=== PATIENT | female | born 1980 | race Caucasian/White ===

== ENCOUNTER 2024-11-18 13:05 | Outpatient (CLI) | payer OTHER, SELFPAY ==
--- NOTE | 2024-11-18 13:30 | DI.MRI_ITS ---
Exam(s) MR LOWER JOINT RT WO EXAM: MR LOWER JOINT RT WO CLINICAL HISTORY: ? ACL TEAR S89.91XA INJURY RT LEG. TECHNIQUE: Multiplanar multisequence MRI was performed. COMPARISON: The exam is interpreted without benefit of comparison plain films. FINDINGS: BONES: There is a small focus of edema in the medial femoral condyle deep to a cartilage defect. There is mild edema in the posterior aspect of the lateral tibial plateau which could indicate mild contusion. JOINTS: A moderate-sized joint effusion is present. Articular cartilage: Patellofemoral joint: Articular cartilage is unremarkable. Medial femoral tibial joint: Focal linear defect at the medial femoral condylar cartilage that extends down to bone. There is a small focus edema in the adjacent bone. Lateral femoral tibial joint: Articular cartilage is unremarkable. LIGAMENTS/TENDONS: Anterior Cruciate: The fibers are indistinct near the femoral attachment. This could indicate a severe partial to full-thickness tear. Posterior Cruciate: Unremarkable. Medial Collateral:Some edema around the medial collateral ligament but no visible tear. Lateral Collateral ligament complex: Unremarkable. Extensor mechanism: Unremarkable. Medial retinaculum: Unremarkable. Lateral retinaculum: Unremarkable. Popliteus: Unremarkable. MENISCI: The medial meniscus shows a small tear in the posterior horn at the inferior articular surface. This is near the level of the cartilage defect of the medial femoral condyle. The lateral meniscus is unremarkable. MUSCLES: Unremarkable. SOFT TISSUES: Mild anterior edema in the subcutaneous fat. IMPRESSION: Focal linear cartilage defect of the medial femoral condyle and adjacent bony edema. Small tear of the posterior horn of the medial meniscus in the region of the cartilage defect. The fibers of the anterior cruciate ligament are indistinct at the femoral attachment which could indicate severe partial versus full-thickness tear. DATA REPOSITORY:
== END 2024-11-18 13:25 ==
LOC: DI 12-03 13:05
PROVIDERS: Visit Provider Student in an Organized Health Care Education/Training Program
DX: S89.91XA Unspecified injury of right lower leg, initial encounter (principal); M23.321 Other meniscus derangements, posterior horn of medial meniscus, right knee; X58.XXXA Exposure to other specified factors, initial encounter
CPT/HCPCS: 73721

== ENCOUNTER 2024-12-18 08:44 | Day surgery (SDC) | payer OTHER, SELFPAY ==
[2024-12-18] VITALS (32 sets, daily range): BP systolic 123–160; BP diastolic 82–137; PULSE 62–94; RESP 8–24; TEMP 36.5–37.1; O2SAT 82–100; BMI 28.4
--- NOTE | 2024-12-18 06:56 | ROE_ITS ---
Operative Note Operative Note PRE-OP DIAGNOSIS: Right knee: 1. Proximal ACL rupture 2. Medial meniscus tear 3. Medial femoral condyle cartilage tear PROCEDURE: Right knee: 1. ACL REPAIR, CPT #91240 2. Partial medial and lateral meniscectomy, CPT #52530 3. Intercondylar and medial femoral condyle microfracture, CPT #86892 SURGEON: Al Denney ROLLER INSPECTOR AND MENDER: Tasha Curry ANESTHESIA TYPE: Local By Surgeon, General LMA/ETT and Primary Nerve Block Refer to Anesthesia Record ESTIMATED BLOOD LOSS: 10 TOURNIQUET TIME: 0 COMPLICATIONS: None Patient was transported to: PACU Patient's condition: stable Implants: Arthrex 4.75 mm bio composite SwiveLock with 3 x 1.3 mm suture tape FiberLink's for ACL repair Indications: Please see complete medical record for details. Findings: Exam under anesthesia: Full range of motion, grossly positive Neelam, equivocal positive pivot glide, stable varus and valgus Arthroscopic findings: Near?complete proximal ACL avulsion with otherwise healthy intact ACL ligament tissue throughout. Moderate global capsulitis and synovitis. Relatively small high grade medial femoral condyle 5 x 10 cartilage lesion. Possible small hidden far posterior horn medial meniscus incomplete inferior leaflet tear with stable margins. Redundant lateral meniscus white zone fraying. Intact PCL. Procedure Description: In the operating room, general anesthesia was induced. The patient was positioned supine on the operating room table. All bony prominences were well- padded. Preoperative antibiotics were administered. The knee was prepped and draped in the usual sterile fashion. The correct patient, procedure, and side of the procedure were all verified prior to incision. Exam under anesthesia was performed. Local anesthetic containing epinephrine was infiltrated about the planned anteromedial, anterolateral, and possible late ral distal femoral, and pretibial surgery sites. The standard anteromedial anterolateral portals were established and a complete diagnostic arthroscopy was performed with relevant findings detailed above. A passport cannula was inserted in both the anteromedial and anterolateral portals. Mechanical shaver was used to remove the medial gutter plica and redundant inflamed synovium from patellofemoral and anterior intercondylar areas. The ACL was carefully examined and inspected. Anterior drawer testing over the side of table confirmed proximal avulsion with otherwise excellent ACL length and tissue throughout its entire course. The femoral origin was lightly decorticated with the ACL retracted to avoid tissue injury to optimize healing and a small notchplasty done for visualization and again bone marrow stimulation healing. The ACL was then bluntly dissected off the PCL and confirmed to be mobile with sufficient length for suture anchor repair. Attention was then turned to the medial compartment where the torpedo shaver was used to do a chondroplasty of about a 5 x 5 mm area and a slightly larger moderately high-grade cartilage lesion with some loose unstable cartilage centra lly. Stable francisco were established for later microfracture. Carefully probing the medial meniscus there was a slight tearing anterior horn white zone and possibly an incomplete inferior leaflet peripheral tear and inaccessible region posterior horn body junction with the meniscus overall stable no displacement and no tear propagation on testing. A torpedo shaver was entered and attempted abrade and debride in this lesion. In the [id number] position the lateral meniscus was shown to be quite redundant especially white zone tissue possible discoid etiology and trimmed lightly of some fraying and redundancy with a torpedo shaver. Back over the side of the table working in the intercondylar area the knee scorpion was used to place three 1.3 mm suture tape FiberLink's in cinch mode about the distal to mid ACL with the repair sutures aiming and exiting the tissue towards the repair site. The back wall and suture anchor trajectory was confirmed with the knee held by porcelain buildup assistant and hyperflexion. The undersized punch, regular punch, and tap were then used for the suture anchor. The 3 repair suture was then loaded on 4.5 mm bio composite SwiveLock anchor which was deployed with excellent reduction and fixation strength on the ACL. The ACL was examined and quite stable to testing. The power pick was then used to perform a microfracture around but not involving the suture anchor site on the lateral intercondylar wall to optimize bone marrow stimulation for healing in this setting. Lastly, it was used to target perpendicularly the small central area of the medial femoral condyle cartilage lesion with a few drill sites as microfracture. The knee and all portals were copiously irrigated and then knee drained of arthroscopic fluid. Neelam exam was rock stable. 3-0 Monocryl was used to close the portals in a buried interrupted fashion. Mastisol, Steri-Strips, Xeroform, 4 x 4 gauze, and sterile soft roll was applied. The extremity was wrapped gently with an Sanju bandage. The patient awoke from anesthesia without complication and was transferred to the recovery room in a stable condition. Date of Procedure: 12/18/24
--- NOTE | 2024-12-18 07:06 | W.PM.DSUDISC ---
Date of service: 12/18/24 Discharge Plan Disposition Patient Disposition: Home Condition: Stable Discharge Details Attending Provider: Al Denney Primary Care Provider: None,None Home Meds and New Rx's Prescriptions: New naproxen 250 mg tablet 250 - 500 mg PO BID PRN (Reason: moderate pain and swelling) Qty: 40 0RF oxycodone 5 mg tablet 5 - 10 mg PO .q4-6h MDD 30 mg PRN (Reason: severe pain) Qty: 18 0RF aspirin 81 mg capsule 81 mg PO DAILY 14 Days Qty: 14 0RF Continued olmesartan 20 mg tablet 20 mg PO DAILY Discharge Instructions Additional Instructions: Surgery: Right knee arthroscopy with ACL REPAIR, partial medial & lateral meniscectomy, intercondylar & medial femoral condyle microfracture 12/18/24 Activity: Protected weightbearing with crutches for 6 weeks. No brace or crutches needed as soon as comfortable and stable on knee. Restore full knee extension as soon as possible. Perform early quad sets/quadriceps isometrics. Limit flexion to 90 degrees for 4 weeks and then gradually increase flexion to full. Recommend elevation to minimize swelling discomfort. Encourage ankle pumps and wiggle toes to improve circulation. A physical therapy prescription will be sent electronically to begin in about 3 weeks. Avoid sports activities for about 9+ months. Prescriptions: Aspirin 81 mg take 1 daily to prevent a blood clot for 14 days, starting tomorrow Naproxen 250 mg take 1-2 every 12 hours with a meal as needed for moderate pain Oxycodone 5 mg take 1-2 every 4-6 hours as needed for severe pain You may use [id number] Tylenol (acetaminophen) as needed for mild pain. These pain medications may be taken all at once or in different combinations as needed. Also, recommend Colace (docusate) as a stool softener as surgery and pain medicine cause constipation. You may try ecer-pof-pkehjvr diphenhydramine (Benadryl) 25-50 mg nightly as a sleep aid Dressings: Loosen/adjust MARIA M bandage for comfort. Leave dressing in place for 3 days. May then remove and leave open to air or cover incisions with Band-Aids. Leave the sticky Steri-Strips in place until they fall off or remove them after you shower. May shower after 5 days. Follow-up: 10-[address] Denney You may take off the leg compression stockings this evening at home. You may also leave them on a few days longer if you have a history of leg swelling or edema. Let us know right away if you develop any redness, drainage, fevers, chest pain, or trouble breathing. Do not drink alcohol or drive for at least 24 hours after anesthesia. Please call the office during business hours with any questions or concerns. 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
[2024-12-18] MEDS: Lactated Ringers 1,000 ML 30 ML IV (10:06)
--- NOTE | 2024-12-18 12:12 | ANES.PREOP_ITS ---
General Info Date of Service Date Performed: 12/18/24 Height: 5 ft 6 in Weight: 79.9 kg Body Mass Index (BMI): 28.4 Surgical Procedure: Operation Date: 12/18/24 10:40 Proposed Procedure Side Surgeon p Knee ACL Reconstruction, Allograft Right Al Denney MD Meds Allergies and Home Medications Allergies Allergy/AdvReac Type Severity Reaction Status Date / Time No Known Allergies Allergy Verified 12/18/24 09:40 Home Medication ?Medication ?Instructions ?Recorded olmesartan 20 mg tablet 20 mg PO DAILY High Blood Pr essure 12/16/24 Current Visit Medications: Current Medications Generic Name Dose Route Start Last Admin Trade Name Freq PRN Reason Stop Dose Admin Ringer's Solution 1,000 mls @ 30 mls/hr 12/18/24 06:00 12/18/24 10:06 IV 12/18/24 23:59 30 mls/hr INFUSION BENITO Administration Cefazolin Sodium/Dextrose 2 gm in 50 mls @ 100 mls/hr 12/18/24 06:00 Ancef Duplex IVPB 12/18/24 23:59 PREOP BENITO Tranexamic Acid/Sodium Chloride 1,000 mg in 100 mls @ 600 mls/hr 12/18/24 06:00 IVPB 12/18/24 23:59 PREOP BENITO IV Miscellaneous Supplies 1 each 12/18/24 06:00 Iv Access IV 12/18/24 23:59 DIRECTED BENITO Oxycodone HCl 0 mg 12/18/24 07:06 Oxycodone 5 Mg Tab PO 01/17/25 07:05 Q3H PRN PRN Pain Sodium Chloride 0 ml 12/18/24 06:00 Normal Saline Flush 10 Ml Syr IV 12/18/24 23:59 PRN PRN Sodium Chloride 0 ml 12/18/24 06:00 Normal Saline 10 Ml Vial IJ 12/18/24 23:59 DIRECTED PRN Sterile Water 0 ml 12/18/24 06:00 Water,Injection,Sterile 10 Ml Vial IJ 12/18/24 23:59 DIRECTED PRN PFSH Active Problems Active Problems: Problem Status Onset Code Stiffness of right knee Acute M25.661 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 Acute M94.261 Acute medial meniscus tear of right knee Acute S83.241A Right ACL tear Acute 11/03/24 S83.511A Surgical History Surgical History S/P reconstruction of ACL of left knee using hamstring autograft Tobacco Smoking/Tobacco Use Status: Current every day Tobacco Type: e-cigarettes and smokeless tobacco Alcohol Alcohol Intake: current Alcohol intake frequency: 0-2 drinks per day Alcohol type: beer Substance Use Substance use: Never Substance use type: does not use Details: 12/18/24: vaped this morning 12/17/24: ate 1 edible Vital Signs and Lab Results Vital Signs Most Recent Vital Signs in EMR: Most Recent Vital Signs Temp Pulse Resp BP Pulse Ox 37.1 C 84 16 136/91 H 97 12/18/24 09:40 12/18/24 09:40 12/18/24 09:40 12/18/24 09:40 12/18/24 09:40 Point of Care Results Point of Care Results: POC- Test(urine) Negative 12/18/24 10:08 Anesthesia Assessment and Plan Anesthesia History Personal History: No History of Anesthesia Complications Family History: No Family History of Anesthesia Complications Exercise Tolerance Exercise Tolerance: Metabolic Equivalents>4 Pertinent Negatives Pertinent Negatives: No Symptoms of GERD, No Major Cardiovascular Symptoms or Complaints and No Major Pulmonary Symptoms or Complaints Cardiac & Pulmonary Exam Cardiac Exam: Normal S1/S2 Heart Sounds Pulmonary Exam: Clear Bilateral Breath Sounds Implantable Cardiac Device Does patient have a Pacemaker or an ICD?: No Airway Exam Known Difficult Airway: No Mallampati Class: 2 Mouth Opening: Normal (> 3cm) Thyromental Distance: Greater than 3 cm Neck Range of Motion: Full ROM Neck Circumference: Normal Teeth Condition: Normal Dentition ASA Classification ASA Score: ASA 2 Emergency Case?: No NPO Status NPO Status: NPO Clears >2 hours, Solids >8 hours Status Status: Negative HCG Anesthesia Plan Resuscitation Status: Full Code Anesthesia Technique: General Anesthesia Airway Planned: Endotracheal Tube Pain Management: Surgeon and patient request nerve block Monitors Used: Standard Monitors Preoperative Comments:: Femoral nerve block. Recent addition of anti hypertensive with good response.
--- NOTE | 2024-12-18 12:49 | W.ANESNERVE ---
Nerve Block Single Injection Procedure Date and Time Date Performed: 12/18/24 Procedure Start: 12:38 Location Where Procedure Performed Procedure Location: Day Surgery Unit Reason Performed: Postoperative Analgesia Requesting Provider: Al Denney Timeout Performed Timeout Performed: Yes Monitoring Used ECG, Blood Pressure, SpO2 and See EMR for corresponding vital signs Sterility Sterility: Hand Hygiene, Surgical Cap, Surgical Mask, Sterile Gloves, Sterile Drape/Sheet and Chlorhexidine Sedation Given During Procedure Sedation Given (Indicate Dose Given): Versed IV Dose:: 2 mg Patient Mental Status Patient Mental Status: Sedate with meaningful communication Nerve Block 1st Nerve Block: Laterality: Right Block Type: Femoral Ultrasound Image Saved?: Yes Needle / Catheter Used: 100mm SonoPlex II Local Anesthetic Bolus (Indicate Dose Given): Lidocaine used for local infiltration of skin, Injected in 3-5ml increments after negative blood aspiration, Bupivacaine 0.25% Dose:: 10 ml and Exparel Dose:: 10 ml Additives (Indicate Dose Given): None Ultrasound: Sterile probe cover and gel used Nerve Stimulator: Supplement to Ultrasound use and No twitch or parasthesia noted < 0.5 mA Paresthesia: None Procedure Tolerated: No Complications and Patient tolerated well Procedure Outcome: Successful Performed By: Chelsea Correa
[2024-12-18] MEDS: ceFAZolin 2 GM/50 ML BAG IVPB (12:53)
[2024-12-18] MEDS: TRANEXAMIC ACID/SOD. CHL. 1,000 MG/100 ML BAG 600 MG IVPB (13:02)
[2024-12-18] MEDS: Bupivacaine 0.25% Pres-Free W/EPI 30 ML VIAL (13:31)
[2024-12-18] MEDS: EPINEPHrine 10 MG/10 ML ML (14:00)
[2024-12-18] MEDS: fentaNYL 100 MCG/2 ML VIAL IVP (14:43)
[2024-12-18] MEDS: HYDROmorphone 2 MG/ML SYR IVP ×2 (14:50→15:02)
[2024-12-18] MEDS: Acetaminophen 500 MG TAB 1000 MG PO (16:02)
--- NOTE | 2024-12-18 16:21 | W.ANESPOSTOP ---
Postoperative Evaluation Date, Time and Location Date Performed: 12/18/24 Time Performed: 16:23 Patient Location: Day Surgery Unit Vital Signs Most Recent Imported Vital Signs: Most Recent Vital Signs Temp Pulse Resp BP Pulse Ox 36.6 C 73 17 153/92 H 100 12/18/24 15:30 12/18/24 15:30 12/18/24 15:30 12/18/24 15:30 12/18/24 15:30 Pain Score Most Recent Pain Score: Most Recent Pain Score Pain Level 6 12/18/24 15:30 Assessment Mental Status: Awake (Alert & Oriented to Patient Baseline) Airway and Respiratory Function: Patent airway with normal (patient baseline) respiratory exam Cardiovascular Function: Hemodynamically Stable Hydration Status: Adequately Hydrated Nausea & Vomiting: No Nausea or Vomiting Pain: Pain is tolerable per patient (discomfort in back of knee only) Peripheral Nerve Block: Regional nerve block not resolved at time of post operative discharge
== END 2024-12-18 16:54 | disposition home or self-care (01) ==
LOC: SUR 08:45
PROVIDERS: Visit Provider Student in an Organized Health Care Education/Training Program
PROC: (CPT 29888; principal; 2024-12-18 10:30)
DX: S83.511A Sprain of anterior cruciate ligament of right knee, initial encounter (principal); S83.241A Other tear of medial meniscus, current injury, right knee, initial encounter; M24.19 Other articular cartilage disorders, other specified site; X58.XXXA Exposure to other specified factors, initial encounter; G89.18 Other acute postprocedural pain
CPT/HCPCS: 29888; 29879; 29880; 64447; 81025; J0665; J0666; J0690; J1100; J1171; J1885; J2003; J2250; J2405; J2704; J3010